=== PATIENT | male | born 1965 | race Caucasian/White ===

== ENCOUNTER 2023-01-28 04:00 | Day surgery (SDC) | payer OTHER ==
[2023-01-28] VITALS (250 sets, daily range): BP systolic 86–147; BP diastolic 43–106
--- NOTE | 2023-01-28 07:05 | NUR ---
PT ARRIVES AMBULATORY TO ROOM WITH STEADY GAIT WITH IN ATTENDANCE. DISCUSSED POC AND ALL QUESTIONS ANSWERED.
[2023-01-28 07:52] LABS: BASO% 0.8 % (0-3); EOS% 1.6 % (0-8); HEMATOCRIT 46.3 % (39.0-50.0); HEMOGLOBIN 14.8 g/dl (14.0-18.0); IMMATURE GRANULOCYTES 0.2 % (0.0-5.0); LYMPH% 17.3 % (15-41); MEAN CORPUSCULAR HGB 29.1 pG CALC (26.0-32.0); MONO% 10.4 % (2-13); NEUT# 6.06 thou/uL (1.82-7.42); NEUT% 69.7 % (42-76); RED BLOOD COUNT 5.09 mill/uL (4.70-6.10); RED CELL DISTRI WIDTH 14.1 % (11.5-15.5)
--- NOTE | 2023-01-28 07:58 | NUR ---
CALLED WITH REPORT ON PTS USE ,VS AND HX. NEW ORDERS RECEIVED AND MEDS ADMINISTERED ORDERED
[2023-01-28 08:26] LABS: ALBUMIN 4.2 g/dL (3.2-5.0); ALKALINE PHOSPHATASE 107 u/l (38-126); BILIRUBIN, TOTAL 0.4 mg/dL (0.2-1.3); BUN 13 mg/dL (9-20); BUN/CREATININE RATIO 19 (12-20 (CALC)); CARBON DIOXIDE 33 mmol/l (22-30); CHLORIDE 103 mmol/l (95-108); CREATININE 0.7 mg/dL (0.7-1.3); GFR FOR AFR.AMER. > 60 ML/MIN (>=60 (CALC)); GFR OTHER RACES > 60 ML/MIN (>=60 (CALC)); POTASSIUM 4.2 mmol/l (3.5-5.1); SGOT/AST 24 u/l (17-59); TOTAL PROTEIN 7.4 g/dL (6.3-8.2)
[2023-01-28 08:28] LABS: ANION GAP 11 (6-22 (CALC)); SODIUM 143 mmol/l (137-146)
--- NOTE | 2023-01-28 08:30 | NUR ---
PT REPORTS THAT "I USUALLY USE OXYGEN WHEN I SLEEP AT NIGHT". 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 NO LOOSE TEETH NOTED. PT WEARS BILATERAL HEARING AIDES.
--- NOTE | 2023-01-28 11:50 | NUR ---
Induction Note Patient to [facility] procedure room. Time out performed at 1150. Patient placed on monitors, Carla hugger, bilateral wrist restraints applied for ET tube protection. Versed 5mg given IV push at 1150 Tourniquet applied to RT arm Lidocaine 100mg given at 1156 IV push followed by Rocoronium 10mg at 1156 IV push and held for 90 seconds. Propofol bolus of 180mg given at 1158 IV push. 1215 Succinylcholine 80mg given IV push at 1159. Smooth intubation with 7.5 ETT. Positive CO2. Positive Auscultation for air exchange. Patient placed on ventilator for spontaneous ventilation. Placed on Propofol IV drip at 1200. OG inserted. Positive air on auscultation. Positive gastric content. Stomach washed at this time. Naltrexone 50mg given via OG tube with Clonidine 0.1 mg given via OG Tube. OG clamped for 45 minutes. Will monitor patient for symptoms of withdrawal and adjust propfol accordingly.
--- NOTE | 2023-01-28 13:00 | NUR ---
OG open note OG open at this time. Gastric content draining into drainage bag. OG to drain for 45 minutes. Propofol will be titrated down based on patient.
[2023-01-28] MEDS ORDERED: METOPROL TAR25 MG PO (13:06)
[2023-01-28] MEDS ORDERED: CYMBALTA60 MG PO (13:06)
[2023-01-28] MEDS ORDERED: TAMSULOSIN0.4 MG PO (13:07)
--- NOTE | 2023-01-28 14:00 | NUR ---
OG close note Stomach washed at this time. Naltrexone 50 mg with Clonidine 0.2 mg via OG tube. OG will be clamped for 45 minutes.
[2023-01-28] MEDS ORDERED: NALTREXONE50 MG PO (15:14)
[2023-01-28] MEDS ORDERED: KLONOPIN2 MG PO (15:15)
[2023-01-28] MEDS ORDERED: CLONIDINE0.1 MG PO (15:15)
--- NOTE | 2023-01-28 15:30 | NUR ---
OG close note Stomach washed at this time. Naltrexone 50 mg with Clonidine 0.2 mg via OG tube. OG will be clamped for 45 minutes. cleansed of large loose bm, no urine throughout treatment, inserted f/c with immediate return of 600cc CLEAR DARK YELLOW URINE.
--- NOTE | 2023-01-28 17:00 | NUR ---
OG close note Stomach washed at this time. Naltrexone 12.5 mg with Clonidine 0.1 mg via OG tube. OG will be clamped for 45 minutes.CLEANSED OF LARGE LIQUID BROWN STOOL.
--- NOTE | 2023-01-28 19:05 | NUR ---
Extubation note Closing medications given Benadryl 50mg IV push, Decadron 10mg IV push,Magnesium 4 grams IV, Zofran 8mg IV push, Octreotide 100mcg SC. Stomach washed out prior to extubation. Suctioned gastric content. OG removed. Patient extubated. Propofol Discontinued. Wrist restraints removed. Carla hugger Removed. See ANR Moderate sedate recovery record for further notes and assessment.
--- NOTE | 2023-01-28 19:40 | NUR ---
TRANSPORTED TO ME VIA STRETCHER IN NO ACUTE DISTRESS. RESP EVEN AND UNLABORED. BEDSIDE REPORT TO MARITA SANCHEZ
--- NOTE | 2023-01-28 20:10 | NUR ---
PT ARRIVED TO [facility] ROOM 287. RECIEVED BEDSIDE REPORT FROM ANR NURSE. PT DISORIENTED WITH GRABLED SPEECH. RESPIRATIONS SHALLOW ON 3L NC, O2 SAT STABLE. CONT O2 IN PLACE. HEART RHYTHM NORMAL. BOWEL SOUNDS ACTIVE. #20G RH AND #18G LH PATENT. INF INFUSING PER ORDER. SKIN INTACT. PULSES STRONG. NONPITTING EDEMA NOTED TO HANDS, CHECKERING MACHINE ADJUSTER INFORMED BY ANR NURSE THAT HE REPORTS IT BEING HIS NORMAL. HEARING AIDS AT BEDSIDE. NO SIGNS OF ANY DISTRESS. ALL SAFTEY PRECAUTIONS ARE IN PLACE WITH CALL LIGHT IN REACH. BED ALARM ACTIVE
[2023-01-29 00:02] VITALS: BP 140/80
--- NOTE | 2023-01-29 00:23 | NUR ---
PT RESTING IN SEMI FOWLERS POSITION. PT MORE ALERT. STAFF IS CONTINOUSLY AT BEDSIDE DUE TO PT CALLING OUT "HELP" OR "I NEED MY URINAL". WHEN ENTERING ROOM, PT WILL CLOSE HIS EYES AND IS SUDDENLY DROWSY AGAIN. RESPIRATIONS EVEN AND UNLABORED ON 3L NC. CONT O2 IN PLACE, SATS STABLE. #20G RH AND #18G LH PATENT. TOLERATED 2300 MEDS WELL. URINE PUT IN PLACE DUE TO PT UNABLE TO " PEE INFRONT OF STAFF." PT DENIES OF ANY ADDITIONAL NEEDS AT THIS TIME. ALL SAFTEY PRECAUTIONS ARE IN PLACE WITH CALL LIGHT IN REACH. BED ALARM ACTIVE
[2023-01-29 02:18] VITALS: BP 135/83
--- NOTE | 2023-01-29 04:16 | NUR ---
PT RESTING IN SEMI FOWLERS POSITION. RESPIRATIONS EVEN AND UNLABORED. MARKETING DEVELOPMENT MANAGER INFORMED OF O2 SAT DROPPING TO 88% ON 2L NC. RT INFORMED TO DETERMINE IF PRN CPAP WAS NEEDED. MARKETING DEVELOPMENT MANAGER INFORMED BY RT TO INCREASE NC DUE TO PT NOT TOLERATING WELL. O2 SAT STABLE ON 3L NC. CONT O2 REMAINS IN PLACE. #20G RH AND #18G LH NOTED. PT DENIES OF ANY NEEDS. ALL SAFTEY PRECAUTIONS ARE IN PLACE WITH CALL LIGHT IN REACH. BED ALARM ACTIVE
[2023-01-29 05:18] LABS: BASO% 0.1 % (0-3); HEMATOCRIT 42.6 % (39.0-50.0); HEMOGLOBIN 14.5 g/dl (14.0-18.0); IMMATURE GRANULOCYTES 0.1 % (0.0-5.0); LYMPH% 6.3 % (15-41); MEAN CELL VOLUME 86.4 fL CALC (80.0-100.0); MEAN CORPUSCULAR HGB 29.4 pG CALC (26.0-32.0); MONO% 2.9 % (2-13); NEUT# 12.28 thou/uL (1.82-7.42); NEUT% 90.6 % (42-76); RED BLOOD COUNT 4.93 mill/uL (4.70-6.10); RED CELL DISTRI WIDTH 13.2 % (11.5-15.5)
[2023-01-29 05:33] LABS: ALKALINE PHOSPHATASE 114 u/l (38-126); BILIRUBIN, TOTAL 0.5 mg/dL (0.2-1.3); BUN 10 mg/dL (9-20); BUN/CREATININE RATIO 18 (12-20 (CALC)); CARBON DIOXIDE 27 mmol/l (22-30); CHLORIDE 100 mmol/l (95-108); CREATININE 0.6 mg/dL (0.7-1.3); GFR FOR AFR.AMER. > 60 ML/MIN (>=60 (CALC)); GFR OTHER RACES > 60 ML/MIN (>=60 (CALC)); MAGNESIUM 1.9 mg/dL (1.6-2.3); POTASSIUM 3.9 mmol/l (3.5-5.1); SGOT/AST 32 u/l (17-59); TOTAL PROTEIN 7.2 g/dL (6.3-8.2)
[2023-01-29 05:38] LABS: ANION GAP 10 (6-22 (CALC)); SODIUM 133 mmol/l (137-146)
[2023-01-29 05:40] VITALS: BP 121/76
--- NOTE | 2023-01-29 06:40 | NUR ---
PT DEMANDING FLOMAX OUT OF BAG AND STATES "I HAVE TO PEE, IM ABOUT TO EXPLODE. PT INFORMED HE IS NOT TO TAKE ANY HOME MEDICATIONS. BAG PLACED OUT OF PATIENTS REACH. BLADDER SCAN COMPLETE, RESULTING IN 40. PT UNDERSTANDS THAT FLOMAX ORDER WILL BE OBTAINED WHEN MD ROUNDS.
--- NOTE | 2023-01-29 07:15 | NUR ---
R'CD REPORT FROM PM NURSE. PT IS AWAKE, A&OX3, PT ABLE TO FOLLOW COMMANDS BUT STATES HE FEELS WEAK. PT ATTACHED TO CONTINOUS O2 MONITORING. PT ENCOURAGED TO CONTINUE TO REST. WILL CONTINUE TO MONITOR.
[2023-01-29 08:15] VITALS: BP 121/76
--- NOTE | 2023-01-29 11:30 | NUR ---
PT HAS PUSHED CALL LIGHT AND REQUESTED TO GO TO BATHROOM, PT REQUIRES A TWO PERSON MAX ASSIST, PT IS UNSTEADY AND STATES HE FEELS BAD. PT ENCOYARGED TO SIT UP IN CHAIR, PT REFUSES. PT PLACED BACK IN BED COMFORTABLY. WILL CONTINUE TO MONITOR.
--- NOTE | 2023-01-29 14:58 | NUR ---
PT HAS AMBULATED THE BARNETT, PT GAIT IS UNSTEADY AND REQUIRES ASSISTANCE, WILL TRY AGAIN AT A LATER TIME. PT STILL HAS O2 MONITORING IN PLACE,
--- NOTE | 2023-01-29 16:59 | NUR ---
PT HAS BEEN D/C. ALL PT BELONGINGS HAVE BEEN TAKE WITH PT. ALL IVS HAVE BEEN REMOVED. D/C INSTRUCTIONS WILL BE GIVEN BY ANR DIRECTOR.
== END 2023-01-29 18:06 | disposition home or self-care (01) | DRG 897 ==
LOC: MS2 04:00 → ANR 04:00 → MS2 06:03 → ANR 09:00
PROVIDERS: ATTEND Anesthesiology Critical Care Medicine
DX: F11.20 Opioid dependence, uncomplicated (principal)
CPT/HCPCS: J0131; J1100; J2354; J3475; S0164